=== PATIENT | female | born 1980 | race Caucasian/White ===

== ENCOUNTER → 2020-03-02 11:24 | Outpatient (CLI) | payer OTHER, SELFPAY ==
[2020-03-02 11:59] LABS: Basophils % 0.4 % (0.1-2.0); Eosinophils # 0.2 K/mm3 (0.0-0.4); Hematocrit 39.8 % (37.0-47.0); Hemoglobin 13.3 g/dL (12.2-16.2); Lymphocytes # 1.8 K/mm3 (0.7-4.5); Lymphocytes % 21.5 % (10-50); Mean Corpuscular HGB Conc 33.5 g/dL (31.8-35.4); Mean Corpuscular Hemoglobin 30.5 pg (27.0-31.2); Mean Platelet Volume 7.9 fl (7.4-10.4); Monocytes # 0.4 K/mm3 (0.1-1.0); Monocytes % 4.7 % (1.7-9.3); Neutrophils # 5.9 K/mm3 (1.8-7.8); Neutrophils % 71.4 % (37.0-80.0); Platelet Count 257 K/mm3 (142-424); Red Blood Count 4.37 M/mm3 (4.20-5.40); Red Cell Distribution Width 13.1 % (11.5-17.5); White Blood Count 8.2 K/mm3 (4.8-10.8)
[2020-03-02 12:57] LABS: Alanine Aminotransferase 19 U/L (12-78); Albumin Level 4.9 g/dl (3.5-5.0); Alkaline Phosphatase 77 U/L (38-126); Anion Gap 15.6 mEq/L (5-15); Aspartate Amino Transferase 31 U/L (14-36); Bilirubin,Total 0.3 mg/dl (0.2-1.3); Blood Urea Nitrogen 19 mg/dl (7-17); Calcium 10.6 mg/dl (8.4-10.2); Carbon Dioxide 27 mmol/L (22.0-30.0); Chloride 100 mmol/L (98-107); Estimated Glomerular Filt Rate 81 ml/min (>60); GFR (African American) 98 ML/MIN (>60); Globulin 2.5 g/dL (1.3-3.2); Glucose 111 mg/dl (74-100); Potassium 4.6 mmoL/L (3.5-5.1); Sodium 138 mmol/L (136-145); Total Protein,Serum 7.4 g/dl (6.3-8.2)
[2020-03-02 13:29] LABS: Thyroid Stimulating Hormone 1.32 uIU/mL (0.465-4.68)
== END ==
PROVIDERS: Visit Provider Nurse Practitioner Family
DX: R00.2 Palpitations (principal); N91.2 Amenorrhea, unspecified
CPT/HCPCS: 36415; 80053; 82672; 83001; 83002; 84439; 84443; 85025

== ENCOUNTER → 2020-03-24 13:53 | Outpatient (CLI) | payer OTHER, SELFPAY ==
--- NOTE | 2020-03-24 14:03 | US_ITS ---
PROCEDURE: US TRANSVAGINAL CLINICAL INDICATION: AMENORRHEA COMPARISON: PTV US PELVIS-TRANSVAGINAL ONLY from 05/09/2015 FINDINGS: UTERUS: 7cm x 4cmx 3cm with a combined endometrial thickness of 4.7mm LEFT OVARY: [id number] with a volume of 6.9ml. 2 cm simple appearing left ovarian cyst noted RIGHT OVARY: [id number] with a volume of 4.1ml. No cul-de-sac fluid IMPRESSION: Unremarkable pelvic ultrasound Dictated by: Morales Talbot MD 03/24/2020 18:34 Electronically signed by Morales Talbot MD in [place] 03/24/2020 18:34
== END ==
PROVIDERS: PCP Internal Medicine Adolescent Medicine; Visit Provider Nurse Practitioner Family
DX: N91.2 Amenorrhea, unspecified (principal)
CPT/HCPCS: 76830

== ENCOUNTER → 2020-04-13 09:11 | Outpatient (CLI) | payer OTHER, SELFPAY ==
[2020-04-13 10:04] LABS: Chloride 100 mmol/L (98-107); Potassium 4.6 mmoL/L (3.5-5.1); Sodium 138 mmol/L (136-145)
[2020-04-13 10:06] LABS: Alanine Aminotransferase 20 U/L (12-78); Alkaline Phosphatase 67 U/L (38-126); Aspartate Amino Transferase 28 U/L (14-36); Bilirubin,Total 0.5 mg/dl (0.2-1.3); Blood Urea Nitrogen 19 mg/dl (7-17); Estimated Glomerular Filt Rate 70 ml/min (>60); GFR (African American) 85 ML/MIN (>60)
[2020-04-13 10:07] LABS: Albumin Level 4.7 g/dl (3.5-5.0); Albumin/Globulin Ratio 1.8 (1.1-1.8); Anion Gap 14.6 mEq/L (5-15); Calcium 10.4 mg/dl (8.4-10.2); Carbon Dioxide 28 mmol/L (22.0-30.0); Chol/HDL Ratio 1.9 (1-3.5); Cholesterol 149 mg/dl (140-200); Globulin 2.6 g/dL (1.3-3.2); Glucose 97 mg/dl (74-100); HDL Cholesterol 78 mg/dl (40-60); Total Protein,Serum 7.3 g/dl (6.3-8.2); Triglycerides 72 mg/dl (30-150); VLDL Cholesterol 14 mg/dL (0-40)
[2020-04-13 10:09] LABS: Hemoglobin A1C 5.1 % (4.0-6.0)
[2020-04-13 10:18] LABS: Direct LDL Cholesterol 62.76 mg/dL (100-129)
[2020-04-13 10:23] LABS: 25-OH Vitamin D, Total 67.6 ng/mL (30-100)
[2020-04-18 11:15] LABS: Estrogen 353 pg/mL (.)
== END ==
PROVIDERS: Visit Provider Nurse Practitioner Family
DX: R07.9 Chest pain, unspecified (principal); R73.9 Hyperglycemia, unspecified; E83.52 Hypercalcemia; N91.2 Amenorrhea, unspecified
CPT/HCPCS: 36415; 80053; 80061; 82306; 82626; 82670; 82672; 83036

== ENCOUNTER → 2020-04-21 07:47 | Outpatient (CLI) | payer OTHER, SELFPAY ==
--- NOTE | 2020-04-21 07:55 | US_ITS ---
PROCEDURE: US ABD. AORTA SCREENING CLINICAL INDICATION: LT SIDED CHEST PAIN,ABD AORTIC PULSATION COMPARISON: No exams were available for comparison FINDINGS: The abdominal aorta has an unremarkable appearance. No evidence of aortic aneurysm. Proximal common iliacs appear unremarkable. IMPRESSION: No evidence of abdominal aortic aneurysm Dictated b Morales Talbot MD 04/21/2020 09:33 Morales Talbot MD in [place] 04/21/2020 09:33
--- NOTE | 2020-04-21 12:43 | CA_ITS ---
APPROVED REPORT EXAM: Comprehensive 2D, Doppler, and color-flow Echocardiogram Clinic Md Associate: Ashlyn Maldonado RDCS Ht: 5 ft 3 in Wt: 175lbs BSA: 1.83 BP: 122/76 mmHg Indications: REPAIRED PFO BUBBLE STUDY PERFORMED 2D Dimensions LVOT 1.54 cm (M/F) 1.5-2.5 M-Mode Dimensions RVDd 2.22 cm (0.9-2.6) LVDd 4.93 cm (3.5-5.7) LVDs 3.62 cm (3.5-5.7) IVSd 0.66 cm (0.6-1.1) PWd 0.66 cm (0.6-1.1) EF (Teich) 51.70% FS 26.60% EDV (Teich) 114.40 mL ESV (Teich) 55.20 mL LV Diastology E/A Ratio 1.33 Aortic Valve LVOT Max 130.00 (70-110 cm/s) LVOT VTI 25.63 cm Mitral Valve MV A Velocity 69.00 (40-130 cm/s) Left Ventricle Left atrium is normal size, left ventricle is normal size, preserved left ventricular systolic function, visually estimated ejection fraction 55% with no regional wall motion abnormality, diastolic parameters are within normal range. Right Ventricle Right atrium and right ventricular normal size and contractility. Atria Intra-atrial septum is intact, there is no flow across the atrial septum, agitated saline contrast study fails to identify intracardiac shunt. Mitral Valve Mitral valve is grossly normal, there is mild mitral regurgitation. Tricuspid Valve Tricuspid valve is grossly normal, there is mild tricuspid regurgitation. Calculated right ventricular systolic pressure 35 mmHg. Pulmonic Valve Pulmonic valve is poorly visualized. Great Vessels Aortic root is normal size. Pericardium No significant pericardial effusion noted Conclusion 1. Normal left ventricular size, preserved left ventricular systolic function, visually estimated ejection fraction 55% with no regional wall motion abnormality, diastolic parameters are within normal range. 2. Mild mitral and tricuspid regurgitation, calculated right ventricular systolic pressure 35 mmHg. 3. Agitated saline contrast study fails to identify intracardiac shunt. Electronically signed by : Hadley Jones, 04/21/2020 13:53:23
== END ==
PROVIDERS: PCP Internal Medicine Adolescent Medicine; Visit Provider Nurse Practitioner Family
DX: R07.9 Chest pain, unspecified (principal); R09.89 Other specified symptoms and signs involving the circulatory and respiratory systems; Z87.74 Personal history of (corrected) congenital malformations of heart and circulatory system
CPT/HCPCS: 76705; 93306

== ENCOUNTER → 2023-05-05 10:41 | Outpatient (CLI) | payer BC, SELFPAY ==
--- NOTE | 2023-05-05 10:54 | US_ITS ---
FINAL REPORT TECHNIQUE: Limited sonographic imaging of the back soft tissues was obtained. CLINICAL HISTORY: palp soft tissue mass mid back FINDINGS: There is a 3.0 cm, hypoechoic, ovoid focus related to palpable abnormality consistent with lipoma. IMPRESSION: 3 cm lipoma at area of palpable abnormality. Reviewed, Interpreted and Dictated by Jeffrey Herzog MD Transcribed by Aure Garcia Authenticated and [facility][1]
== END ==
PROVIDERS: PCP Internal Medicine Adolescent Medicine; Visit Provider Nurse Practitioner Family
DX: M79.9 Soft tissue disorder, unspecified (principal)
CPT/HCPCS: 76604

== ENCOUNTER 2023-09-30 14:22 | Outpatient (POV) | payer BC, SELFPAY | END 2023-09-30 23:59 | disposition home or self-care (01) | LOC: SC 14:23 | PROVIDERS: PCP Internal Medicine Adolescent Medicine; Visit Provider Dermatology | DX: Z00.00 Encounter for general adult medical examination without abnormal findings (principal) ==

== ENCOUNTER 2024-03-05 12:02 | Emergency (ER) | payer BC, SELFPAY ==
--- NOTE | 2024-03-05 12:11 | EXP.UTC ---
Discharge Plan Disposition Patient Disposition: Home, Self-Care Condition: Good Prescriptions Prescriptions: New cowprotyomdsjbr-ytnmgmjkb-AU [Bromfed DM] 2-30-10 mg/5 mL Syrup 5 - 10 ml PO Q4H PRN (Reason: Cough) Qty: 240 0RF amoxicillin 875 mg tablet 875 mg PO BID Qty: 20 0RF prednisone 20 mg tablet 20 mg PO BID Qty: 10 0RF No Action pusoaobb-zjezdgfdg-JN 3.5-10,000-10 mg-unit-mg/mL drops,suspension 2 drp OPHTHALMIC QID 7 Days Qty: 7.5 0RF Rx Instructions: ii gtts O.U. qid while awake x 7 days cetirizine [Zyrtec] 10 mg tablet 10 mg PO ONCE spironolactone 100 mg tablet 100 mg PO ONCE Referrals Follow up/Referrals: Johnie Park MD [Primary Care Provider] - See instructions Clinical Impressions Clinical Impression: Otitis media Instructions Patient Instructions: DI for Otitis Media (Middle Ear Infection)-Child Discharge ED Provider: Betina Garza [facility] [place] General Stated complaint: cough, pain in both ears, sore throat, H/A Time Seen by Provider: 03/05/24 12:28 History of Present Illness Provider Complaint: Cough, sore throat, headache, bilateral ear pain X 4-5 days. Getting worse instead of better. Onset (ago): day(s) (5) Location: head Relieving factors: none Exacerbating factors: none Associated symptoms: denies other symptoms Treatments prior to arrival: none Related Data Home Medications Medication Instructions Recorded Confirmed cetirizine 10 mg tablet (Zyrtec) 10 mg PO ONCE 11/05/17 08/10/19 spironolactone 100 mg tablet 100 mg PO ONCE 11/05/17 08/10/19 Previous Rx's Medication Instructions Recorded neomycin 3.5 mg-polymyxin 10,000 2 drp ophthalmic (eye) QID 08/10/19 unit-hydrocort 10 mg/mL eye conjunctivitis 7 days #7.5 mL drop,susp amoxicillin 875 mg tablet 875 mg PO BID #20 tabs 03/05/24 hyokwnaugwoliie-nueahwsatxwnlqy-TJ 5 - 10 ml PO Q4H PRN Cough #240 mL 06/21/24 2 mg-30 mg-10 mg/5 mL oral syrup (Bromfed DM) prednisone 20 mg tablet 20 mg PO BID #10 tabs 03/05/24 Allergies Allergy/AdvReac Type Severity Reaction Status Date / Time clindamycin Allergy Verified 08/10/19 11:19 sulfamethoxazole Allergy Verified 08/10/19 11:19 [From Bactrim] trimethoprim [From Bactrim] Allergy Verified 08/10/19 11:19 INGREDIENT: NO KNOWN - NO Allergy Unknown Uncoded 09/02/17 15:01 KNOWN DRUG [facility] Disclaimer: The information contained in this section may have been updated after the patient was seen, as this information can be updated by other users. Social History Smoking Status: Never smoker alcohol intake: current alcohol intake frequency: holidays/special occasions only current occupational status: employed Travel in the last 8 weeks: None ROS Obtained: Yes All systems reviewed & no additional complaints except as documented ENT Ears, Nose, Mouth, and Throat: Reports otalgia, Reports sinus pain and Reports sinus pressure Respiratory Respiratory: Reports chest congestion Physical Exam General General appearance: alert and in no apparent distress Head Head exam: atraumatic, normocephalic and normal inspection Eye Eye exam: Present normal appearance, PERRL and EOMI ENT ENT exam: Present normal exam, normal oropharynx, mucous membranes moist and normal external ear exam Expanded ENT Exam TM/Canal exam: Bilateral TM: erythema and effusion Nose exam: Present sinus tenderness Neck Neck exam: Present normal inspection, full ROM and trachea midline; Absent meningismus or lymphadenopathy Chest Chest inspection: Present normal inspection and symmetric chest wall rise; Absent tenderness Respiratory Respiratory exam: Present normal lung sounds bilaterally; Absent respiratory distress Cardiovascular Cardiovascular exam: Present regular rate and normal rhythm; Absent JVD Abdominal Exam Abdominal exam: Present soft and normal bowel sounds; Absent distention, tenderness or guarding Extremities Exam Extremities exam: Present normal inspection, full ROM and normal capillary refill; Absent calf tenderness Back Exam Back exam: Present normal inspection; Absent tenderness Neurological Exam Neurological exam: Present alert and oriented X3 Psychiatric Psychiatric exam: Present normal affect and normal mood Skin Skin exam: Present warm, dry, intact and normal color Lymphatic Lymphatic Findings: no adenopathy Medical Decision Making Khari Inquiry Pt receiving controlled substance: No
[2024-03-05 12:22] VITALS: BP 153/85; PULSE 71; RESP 16; TEMP 37.2; O2SAT 100; BMI 30.5
[2024-03-05 12:44] VITALS: BP 153/85; PULSE 71; RESP 16; TEMP 37.2
== END 2024-03-05 12:45 | disposition home or self-care (01) ==
PROVIDERS: Emergency Provider Physician Assistant; PCP Internal Medicine Adolescent Medicine
DX: H66.93 Otitis media, unspecified, bilateral (principal); R05.9 Cough, unspecified; R51.9 Headache, unspecified; R07.0 Pain in throat
CPT/HCPCS: 99204; 99212; G0463